=== PATIENT | male | born 1960 | race Hispanic/Latino ===

== ENCOUNTER 2016-08-15 07:37 | Emergency (ER) | payer BC ==
[2016-08-15 07:50] VITALS: BP 116/70; PULSE 93; TEMP 98.5
[2016-08-15 07:58] VITALS: RESP 19; O2SAT 100
--- NOTE | 2016-08-15 08:19 | ED PDOC ---
Lower Extremity Pain/Injury Time Seen by Provider: 08/15/16 08:08 Chief Complaint (Nursing): Lower Extremity Problem/Injury Chief Complaint (Provider): Chronic Rt Knee Pain History Per: Patient History/Exam Limitations: no limitations Onset/Duration Of Symptoms: Days (x1) Current Symptoms Are (Timing): Still Present Severity: Mild Additional Complaint(s): Patient is a 55 year old male presenting to the ED complaining of chronic right knee pain worse since yesterday. Patient denies any new injury or trauma. Patient previously diagnosed with arthritis to the right knee. Denies fever or calf pain. PMD: none Past Medical History Reviewed: Historical Data, Nursing Documentation, Vital Signs Vital Signs: Last Vital Signs Temp 98.5 F 08/15/16 07:56 Pulse 93 H 08/15/16 07:56 Resp 19 08/15/16 07:56 BP 116/70 08/15/16 07:56 Pulse Ox 100 08/15/16 07:56 - Medical History PMH: Denies: No Chronic Diseases, Chronic Kidney Disease - Surgical History Surgical History: Appendectomy - Family History Family History: States: Diabetes - Immunization History Hx Tetanus Toxoid Vaccination: No Hx Influenza Vaccination: No Hx Pneumococcal Vaccination: Yes - Home Medications Home Medications: Ambulatory Orders Medication Instructions Recorded Naproxen [Naprosyn] 500 mg PO Q12H #20 tab 12/08/14 Tramadol Hydrochloride [Tramadol] 50 mg PO Q8 #10 tab 12/08/14 Ibuprofen [Motrin] 600 mg PO Q8 #15 tab 08/15/16 traMADol [Ultram] 50 mg PO Q8 #10 tab 08/15/16 - Allergies Allergies/Adverse Reactions: Allergies Allergy/AdvReac Type Severity Reaction Status Date / Time No Known Allergies Allergy Verified 12/08/14 08:01 Review of Systems ROS Statement: Except As Marked, All Systems Reviewed And Found Negative Constitutional: Negative for: Fever Musculoskeletal: Positive for: Other (rt knee pain -no calf pain) Physical Exam - Reviewed Nursing Documentation Reviewed: Yes Vital Signs Reviewed: Yes - Physical Exam Appears: Positive for: Well, Non-toxic, No Acute Distress Head Exam: Positive for: ATRAUMATIC, NORMAL INSPECTION, NORMOCEPHALIC Skin: Positive for: Normal Color, Warm, DRY Eye Exam: Positive for: Normal appearance, EOMI Neck: Positive for: Normal, Painless ROM Extremity: Negative for: Normal ROM (limited ROM to rt knee secondary to pain), Calf Tenderness, Deformity, Swelling, Other (no effusion or crepitis to rt knee) Neurologic/Psych: Positive for: Alert, Oriented - ECG O2 Sat by Pulse Oximetry: 100 (RA) Pulse Ox Interpretation: Normal Medical Decision Making Medical Decision Making: Time: 8:10 Impression: 55 y/o M w/ chronic rt knee pain Plan: XR rt knee Scribe Attestation: Documented by Yaneli Santoyo acting as a scribe for Oswaldo Huang MD. Scribe Attestation: All medical record entries made by the Scribe were at my direction and personally dictated by me. I have reviewed the chart and agree that the record accurately reflects my personal performance of the history, physical exam, medical decision making, and the department course for this patient. I have also personally directed, reviewed, and agree with the discharge instructions and disposition. Disposition - Clinical Impression Clinical Impression: Degenerative joint disease - Patient ED Disposition Is Patient to be Admitted: No Counseled Patient/Family Regarding: Studies Performed, Diagnosis, Need For Followup, Rx Given - Disposition Referrals: Morris Rubalcava MD [Staff Provider] - Disposition: Routine/Home Disposition Time: 09:20 Condition: FAIR Prescriptions: Ibuprofen [Motrin] 600 mg PO Q8 #15 tab traMADol [Ultram] 50 mg PO Q8 #10 tab Instructions: Osteoarthritis (ED) Forms: [facility] ED School/Work Excuse
--- NOTE | 2016-08-15 10:07 | RAD ---
PROCEDURE: Right knee dated 08/15/2016 HISTORY: pain COMPARISON: Comparison made with radiographs right knee dated 12/08/2014 FINDINGS: BONES: Normal. No fracture. JOINTS: There appears to be some very minor medial joint space narrowing. Tiny medial and marginal tibial osteophyte formation. Tiny posterior patellar osteophytes are present. JOINT EFFUSION: No significant joint effusion. OTHER FINDINGS: None. IMPRESSION: No evidence of acute displaced fracture nor dislocation. If symptoms persist or occult fracture suspected clinically, consider followup CT scan. Minor DJD as above
== END 2016-08-15 09:49 | disposition home or self-care (01) ==
LOC: H.ER 07:37
DX: M25.561 Pain in right knee (principal)

== ENCOUNTER 2016-10-26 01:22 | Emergency (ER) | payer OTHER, BC ==
[2016-10-26 01:44] VITALS: BP 119/68; PULSE 83; RESP 18; TEMP 99.1; O2SAT 97
[2016-10-26] MEDS ORDERED: Lidocaine 1% Inj (20ml) IJ ONE (01:49)
[2016-10-26] MEDS ORDERED: Lidocaine 1% Inj (20ml) ONE (01:51)
--- NOTE | 2016-10-26 02:11 | ED PDOC ---
HPI: Wound Care - HPI Time Seen by Provider: 10/26/16 01:42 Chief Complaint (Nursing): Upper Extremity Problem/Injury Chief Complaint (Provider): left hand middle finger laceration History Per: Patient History Of Present Illness: 56 y/o male presents with laceration to left hand middle finger, sustained prior to arrival. Patient states he was trying to reattach a shelf at work when he cut his finger on a fan underneath the shelf. Denies numbness/weakness left upper extremity. Last Tetanus unknown. Past Medical History Reviewed: Historical Data, Nursing Documentation, Vital Signs Vital Signs: Last Vital Signs Temp 99.1 F 10/26/16 01:39 Pulse 83 10/26/16 01:39 Resp 18 10/26/16 01:39 BP 119/68 10/26/16 01:39 Pulse Ox 97 10/26/16 01:39 - Medical History PMH: Arthritis Denies: Chronic Kidney Disease - Surgical History Surgical History: Appendectomy - Family History Family History: States: Diabetes - Immunization History Hx Tetanus Toxoid Vaccination: No Hx Influenza Vaccination: No Hx Pneumococcal Vaccination: Yes - Home Medications Home Medications: Ambulatory Orders Medication Instructions Recorded Naproxen [Naprosyn] 500 mg PO Q12H #20 tab 12/08/14 Tramadol Hydrochloride [Tramadol] 50 mg PO Q8 #10 tab 12/08/14 Ibuprofen [Motrin] 600 mg PO Q8 #15 tab 08/15/16 traMADol [Ultram] 50 mg PO Q8 #10 tab 08/15/16 - Allergies Allergies/Adverse Reactions: Allergies Allergy/AdvReac Type Severity Reaction Status Date / Time No Known Allergies Allergy Verified 12/08/14 08:01 Review of Systems ROS Statement: Except As Marked, All Systems Reviewed And Found Negative Musculoskeletal: Positive for: Hand Pain (left hand middle finger) Physical Exam - Reviewed Nursing Documentation Reviewed: Yes Vital Signs Reviewed: Yes - Physical Exam Appears: Positive for: Well, Non-toxic, No Acute Distress Pulses-Radial (L): 2+ Pulses-Radial (R): 2+ Extremity: Positive for: Normal ROM, Other (2cm laceration mid-palmar left hand 3rd digit. 0.5cm skin flap laceration distal palmar left hand 3rd digit. Distal nail with incomplete break; no loosening, contusion, active bleeding noted. Distal NV, motor intact and equal b/l upper extremities) Neurologic/Psych: Positive for: Alert, Oriented. Negative for: Motor/Sensory Deficits - ECG O2 Sat by Pulse Oximetry: 97 Procedure: Wound Repair - Time Performed Time Performed: 02:10 - Time Out Time Out: Side verified, Site verified, Patient ID confirmed, Sterile procedures obs. - Procedure Procedure: Wound Repair: left hand 3rd digit laceration - Consent Obtained Consent obtained: Verbal - Performed by Performed by: Mid-level Provider - Indications Indication(s):: Laceration - Location Finger:: Left, Middle Shape:: Curvilinear Dimensions Length cm: 2cm mid-palmar left hand 3rd digit, 0.5cm distal palmar left hand 3rd dig Dimensions width cm: 0.4cm mid-palmar left hand 3rd digit,0.2cm distal palmar left hand 3rd digi Depth:: Subcutaneous fascia - Anesthetic Technique Anesthetic Technique: Topical Local/Regional Anesthetic:: Lidocaine 1% - Wound Examination Wound Examination:: Contaminated - Debris Debris:: None - Irrigated Irrigated with ml of normal saline: 250mL - Complexity Complexity:: Simple (one layer) - Wound repair method Sutures:: # (6 mid aspect laceration, 2 distal aspect laceration), Size (4'0), Type (nylon), Technique (interrupted) - Muscle repiar layer closed with Muscle repair layer closed with:: Wound well approximated, Abx ointment applied , Dressing applied, Tetanus ordered - Patient tolerated procedure Patient Tolerated Procedure:: Well Medical Decision Making Medical Decision Making: Patient educated on wound care, advised suture removal 8 days. Neosporin application daily. Return to ED for worsening/concerning symptoms. Disposition - Clinical Impression Clinical Impression: Finger laceration, Injury of nail - Patient ED Disposition Is Patient to be Admitted: No Counseled Patient/Family Regarding: Diagnosis, Need For Followup - Disposition Referrals: Jaime Castillo MD [Primary Care Provider] - Disposition: Routine/Home Disposition Time: 02:29 Condition: IMPROVED Additional Instructions: Suture removal in 8 days. Apply neosporin daily. Return to ED for increased pain/redness/swelling at wound sites, drainage from wound sites, or other concerning symptoms. Instructions: Laceration (ED), Care For Your Stitches (ED) Forms: [facility] ED School/Work Excuse
== END 2016-10-26 02:36 | disposition home or self-care (01) ==
LOC: H.ER 01:22
DX: S61.313A Laceration without foreign body of left middle finger with damage to nail, initial encounter (principal); W26.8XXA Contact with other sharp object(s), not elsewhere classified, initial encounter; Y93.89 Activity, other specified